=== PATIENT | male | born 1950 | race Hispanic/Latino ===

== ENCOUNTER 2017-12-27 13:02 | Emergency (ER) | payer BC, MEDICARE ==
[2017-12-27 13:07] VITALS: BP 138/68; PULSE 103; RESP 16; TEMP 98; O2SAT 96
[2017-12-27] MEDS ORDERED: Oxycodone/Acetaminophen 5/325 mg Tab PO STA (13:28)
[2017-12-27] MEDS ORDERED: Lidocaine 5% Patch TD STA (13:29)
--- NOTE | 2017-12-27 14:35 | CT ---
PROCEDURE: CT Lumbar Spine without contrast HISTORY: low back pain COMPARISON: None. TECHNIQUE: Axial computed tomography images were obtained of the lumbar spine without the use of intravenous contrast. Coronal and sagittal reformatted images were created and reviewed. Radiation dose: Total exam DLP = 1659.96 mGy-cm. This CT exam was performed using one or more of the following dose reduction techniques: Automated exposure control, adjustment of the mA and/or kV according to patient size, and/or use of iterative reconstruction technique. FINDINGS: VERTEBRAE: Unremarkable. No fracture. Normal alignment. DISCS/SPINAL CANAL/NEURAL FORAMINA: L1-2: A mild central canal stenosis results from generalized disc bulge and moderately prominent facet joint degenerative arthropathy. Mild bilateral neural foraminal stenoses identified symmetrically. L2-3: A severe degenerative central canal stenosis results from a disc osteophyte complex combining with facet joint arthropathy. Moderate degenerative bilateral neural foraminal stenosis identified. L3-4: A moderate degenerative central canal stenosis results from disc osteophyte complex combined with facet joint arthropathy with moderate bilateral neural foraminal stenoses also identified. L4-5: A severe degenerative central canal stenosis results from a disc osteophyte complex combining with facet joint arthropathy. Moderate degenerative bilateral neural foraminal stenosis identified. L5-S1: No significant central canal stenosis identified. Limited disc bulging is seen. Mild bilateral degenerative neural foraminal stenoses are identified on the basis of facet arthropathy and endplate spondylosis. PARASPINAL SOFT TISSUES: Non aneurysmal atherosclerotic abdominal aorta identified. OTHER FINDINGS: None. IMPRESSION: Multilevel degenerative spinal stenosis appreciated seen worst at L2-3 and L4-5 where severe central stenosis results from disc osteophyte complexes combined with facet joint arthropathy. Additional stenoses are identified as discussed above including but not limited to neural foramina. Greater characterization can provided by MRI if clinically warranted.
--- NOTE | 2017-12-27 14:37 | ED PDOC ---
HPI: Back Time Seen by Provider: 12/27/17 13:10 Chief Complaint (Nursing): Back Pain Chief Complaint (Provider): Back Pain History Per: Patient History/Exam Limitations: no limitations Onset/Duration Of Symptoms: Days Current Symptoms Are (Timing): Still Present Additional Complaint(s): 67 y/o male presents to the ED with atraumatic lower back pain. Patient states that for the past several days he has been feeling muscle spasms. He was taking Aleve for the pain but stopped when his alerted him that he couldn't mix it with his blood thinner Eliquis. Today he attempted to get up from the couch when he turned to his right side he felt extreme pain in the right back area causing him to fall down. He sat on the floor in a seated position. Denies any upper back pain, head injury, radiation of pain, abdominal pain, chest pain, hematuria, dysuria, saddle parathesia, urinary and stool incontinence. PMD: Joi Sam Past Medical History Reviewed: Historical Data, Nursing Documentation, Vital Signs Vital Signs: Last Vital Signs Temp 98.0 F 12/27/17 13:05 Pulse 103 H 12/27/17 13:05 Resp 16 12/27/17 13:05 BP 138/68 12/27/17 13:05 Pulse Ox 96 12/27/17 13:05 - Medical History PMH: HTN, Hypercholesterolemia - Surgical History Surgical History: Pacemaker - Family History Family History: States: Unknown Family Hx - Social History Drugs: Denies - Home Medications Home Medications: Ambulatory Orders Medication Instructions Recorded Ciprofloxacin [Cipro] 500 mg PO BID #14 tab 12/27/17 Cyclobenzaprine [Cyclobenzaprine 10 mg PO Q8 PRN #30 tab 12/27/17 HCl] Lidocaine 5% [Lidoderm] 1 ea TD DAILY PRN #10 patch 12/27/17 Methylprednisolone [Medrol Dose 4 mg PO DAILY #21 mg 12/27/17 Pack (21 tabs)] - Allergies Allergies/Adverse Reactions: Allergies Allergy/AdvReac Type Severity Reaction Status Date / Time No Known Allergies Allergy Verified 12/27/17 13:04 Review of Systems ROS Statement: Except As Marked, All Systems Reviewed And Found Negative Cardiovascular: Negative for: Chest Pain Gastrointestinal: Positive for: Constipation. Negative for: Abdominal Pain Genitourinary Male: Negative for: Dysuria, Incontinence (stool and urine), Hematuria, Scrotal Pain (saddle paresthesia) Musculoskeletal: Positive for: Back Pain (lower and right side). Negative for: Other (upper back pain and radiation of pain) Neurological: Negative for: Other (head injury) Physical Exam - Reviewed Nursing Documentation Reviewed: Yes Vital Signs Reviewed: Yes - Physical Exam Appears: Positive for: Non-toxic, In Acute Distress Head Exam: Positive for: ATRAUMATIC, NORMAL INSPECTION, NORMOCEPHALIC Skin: Positive for: Normal Color, Warm Eye Exam: Positive for: EOMI, Normal appearance, PERRL ENT: Positive for: Normal ENT Inspection Neck: Positive for: Normal, Painless ROM, Supple Cardiovascular/Chest: Positive for: Regular Rate, Rhythm. Negative for: Murmur Respiratory: Positive for: Normal Breath Sounds. Negative for: Respiratory Distress Pulses-Dorsalis Pedis (L): 2+ Pulses-Dorsalis Pedis (R): 2+ Gastrointestinal/Abdominal: Positive for: Normal Exam, Soft Back: Negative for: Normal Inspection (mid line tenderness in lumbar area with moderate muscle spasms in lumbar area), L CVA Tenderness, R CVA Tenderness Extremity: Positive for: Normal ROM, Other (full ROM active of lower extremity) . Negative for: Tenderness (hip and pelvic), Pedal Edema Neurologic/Psych: Positive for: Alert, Oriented (x3). Negative for: Motor/ Sensory Deficits - ECG O2 Sat by Pulse Oximetry: 96 (RA) Pulse Ox Interpretation: Normal Medical Decision Making Medical Decision Making: Time: 13:05 Impression: Spinal Stenosis Plan: * Valium 10 mg PO * Lidocaine * Oxycodone 2 tab PO * Uranalysis CT Results: FINDINGS: VERTEBRAE: Unremarkable. No fracture. Normal alignment. DISCS/SPINAL CANAL/NEURAL FORAMINA: L1-2: A mild central canal stenosis results from generalized disc bulge and moderately prominent facet joint degenerative arthropathy. Mild bilateral neural foraminal stenoses identified symmetrically. L2-3: A severe degenerative central canal stenosis results from a disc osteophyte complex combining with facet joint arthropathy. Moderate degenerative bilateral neural foraminal stenosis identified. L3-4: A moderate degenerative central canal stenosis results from disc osteophyte complex combined with facet joint arthropathy with moderate bilateral neural foraminal stenoses also identified. L4-5: A severe degenerative central canal stenosis results from a disc osteophyte complex combining with facet joint arthropathy. Moderate degenerative bilateral neural foraminal stenosis identified. L5-S1: No significant central canal stenosis identified. Limited disc bulging is seen. Mild bilateral degenerative neural foraminal stenoses are identified on the basis of facet arthropathy and endplate spondylosis. PARASPINAL SOFT TISSUES: Non aneurysmal atherosclerotic abdominal aorta identified. OTHER FINDINGS: None. IMPRESSION: Multilevel degenerative spinal stenosis appreciated seen worst at L2-3 and L4-5 where severe central stenosis results from disc osteophyte complexes combined with facet joint arthropathy. Additional stenoses are identified as discussed above including but not limited to neural foramina. Greater characterization can provided by MRI if clinically warranted. Pt. informed of results and advised to f/u PMD or pain management for further evaluation. Reports good relief of pain. Gait steady unassisted. Scribe Attestation: Documented by Tracy Mc acting as a scribe for Eriberto Finn PA-C. MD Scribe Attestation: All medical record entries made by the Scribe were at my direction and personally dictated by me. I have reviewed the chart and agree that the record accurately reflects my personal performance of the history, physical exam, medical decision making, and the department course for this patient. I have also personally directed, reviewed, and agree with the discharge instructions and disposition. Disposition - Clinical Impression Clinical Impression: Lower back pain, UTI (urinary tract infection) - Patient ED Disposition Is Patient to be Admitted: No - Disposition Referrals: Sandra Mabry [Outside] Fady Saunders III, MD [Staff Provider] - Disposition: Routine/Home Disposition Time: 14:43 Condition: IMPROVED Additional Instructions: Follow up with pain management or orthopedist for further evaluation. Return to ED immediately if symptoms worsen. Prescriptions: Ciprofloxacin [Cipro] 500 mg PO BID #14 tab Cyclobenzaprine [Cyclobenzaprine HCl] 10 mg PO Q8 PRN #30 tab PRN Reason: Muscle Spasm Lidocaine 5% [Lidoderm] 1 ea TD DAILY PRN #10 patch PRN Reason: pain Methylprednisolone [Medrol Dose Pack (21 tabs)] 4 mg PO DAILY #21 mg Instructions: Spinal Stenosis, Low Back Pain in Adults Forms: [facility] (Indian) Print Language: LIBERIAN
[2017-12-27 14:59] LABS: SQUAMOUS EPITHIAL 2 /hpf (0-5); URINE BACTERIA OCC (<OCC); URINE BILIRUBIN NEGATIVE (NEGATIVE); URINE BLOOD MODERATE (NEGATIVE); URINE CLARITY CLOUDY (Clear); URINE COLOR AMBER (YELLOW); URINE GLUCOSE (UA) NEG (Normal); URINE LEUKOCYTE ESTERASE LARGE Leu/uL (Negative); URINE PROTEIN 100 mg/dL (NEGATIVE)
== END 2017-12-27 16:54 | disposition home or self-care (01) ==
LOC: H.ER 13:02
DX: N39.0 Urinary tract infection, site not specified (principal); M54.5 Low back pain; E78.00 Pure hypercholesterolemia, unspecified; I10 Essential (primary) hypertension; Z95.0 Presence of cardiac pacemaker